=== PATIENT | male | born 1970 | race Caucasian/White ===

== ENCOUNTER 2019-05-14 16:11 | Emergency (ER) | payer MEDICAID ==
[~2019-05-14] VITALS: Ht 177.8 cm; Wt 113.4 kg
--- NOTE | 2019-05-14 16:41 | NUR ---
DR Cox at the bedside for MSE.
[2019-05-14 17:32] VITALS: BP 149/89
== END 2019-05-14 17:33 | disposition home or self-care (01) ==
LOC: ER 16:12
DX: S92.355A Nondisplaced fracture of fifth metatarsal bone, left foot, initial encounter for closed fracture (principal); X50.1XXA Overexertion from prolonged static or awkward postures, initial encounter; Y93.89 Activity, other specified; Y92.89 Other specified places as the place of occurrence of the external cause; Y99.8 Other external cause status
CPT/HCPCS: 73630; A4663

== ENCOUNTER 2019-07-09 12:55 | Emergency (ER) | payer MEDICAID ==
[~2019-07-09] VITALS: Ht 177.8 cm; Wt 113.4 kg
--- NOTE | 2019-07-09 13:27 | NUR ---
Pt c/o left shoulder pain 8/10 x3days due to a mechanical fall.Pt reports not being able to lift his left arm, but is able to move fingers. Cap refil <3 seconds.
[2019-07-09] MEDS: HYDROCODONE/APAP 5-325MG TABLET PO ONE (13:50)
[2019-07-09] MEDS ORDERED: HYDROCODONE/APAP 10-325 MG TABLET ONE (13:50)
--- NOTE | 2019-07-09 14:07 | NUR ---
SHOULDER XRAY COMPLETE.
--- NOTE | 2019-07-09 14:45 | NUR ---
Patient discharged to home in stable conditon with stable gait accompanied by his . Written and verbal after care instructions given. Patient verbalizes understanding of instructions.
[2019-07-09 15:14] VITALS: BP 154/90
== END 2019-07-09 14:45 | disposition home or self-care (01) ==
LOC: ER 12:55
DX: S46.002A Unspecified injury of muscle(s) and tendon(s) of the rotator cuff of left shoulder, initial encounter (principal); S40.012A Contusion of left shoulder, initial encounter; W19.XXXA Unspecified fall, initial encounter; Y93.89 Activity, other specified; Y92.89 Other specified places as the place of occurrence of the external cause; Y99.8 Other external cause status
CPT/HCPCS: 73030; A4663